=== PATIENT | female | born 1960 | race Two or more races ===

== ENCOUNTER 2020-05-28 10:02 | Outpatient (CLI) | payer OTHER | END 2020-05-28 10:12 | disposition home or self-care (01) | LOC: RAD 10:02 → MAMO-SONO 10:15 | PROVIDERS: ATTEND Physical Medicine & Rehabilitation | DX: M17.0 Bilateral primary osteoarthritis of knee (principal); M75.111 Incomplete rotator cuff tear or rupture of right shoulder, not specified as traumatic; R60.0 Localized edema ==

== ENCOUNTER 2020-05-28 13:10 | Outpatient (CLI) | payer OTHER | END 2020-05-28 13:11 | disposition home or self-care (01) | LOC: NUCLEAR 13:10 | PROVIDERS: ATTEND Physical Medicine & Rehabilitation | DX: M81.0 Age-related osteoporosis without current pathological fracture (principal) ==